=== PATIENT | male | born 1990 | race Caucasian/White ===

== ENCOUNTER 2022-06-24 15:34 | Emergency (ER) | payer MEDICAID ==
[~2022-06-24] VITALS: Ht 180.3 cm; Wt 84.0 kg
[2022-06-24 15:36] VITALS: BP 125/82
== END 2022-06-24 17:47 | disposition home or self-care (01) ==
LOC: EDBD 15:34 → ER 15:34
DX: M79.10 Myalgia, unspecified site (principal); W18.39XA Other fall on same level, initial encounter; Y93.89 Activity, other specified; Y92.89 Other specified places as the place of occurrence of the external cause; Y99.8 Other external cause status
CPT/HCPCS: 99283